=== PATIENT | male | born 1940 | race Caucasian/White ===

== ENCOUNTER 2016-11-20 07:00 | Emergency (ER) | payer OTHER ==
[~2016-11-20 07:00] MED LIST: ALOE; ASPIR 8181 MG PO; CELEXA20 MG; CLINDAMYCIN300 M1 PO; CLOPIDOGREL75 M1 PO; COZ50 PO; HCTZ/TRIAMTEREN1 CA1 PO; HYDRALAZINE HY100 MG PO; KLOR-CON M1010 MEQ; LAC PO; LEVOXYL0.1 MG PO; LIPI10 PO; LOSARTAN POTASS25 M1 PO; LYSINE; METOPROLOL SUCC25 M1 PO; MULTI-VITAMINS1 TAB PO; OCUVITE1 TA2 PO; PROTONIX40 MG PO
[2016-11-20 10:00] VITALS: BP 148/72
== END 2016-11-20 10:00 | disposition home or self-care (01) ==
LOC: ED 07:00
DX: S01.01XA Laceration without foreign body of scalp, initial encounter (principal); S63.502A Unspecified sprain of left wrist, initial encounter; S39.012A Strain of muscle, fascia and tendon of lower back, initial encounter; S41.112A Laceration without foreign body of left upper arm, initial encounter; S41.111A Laceration without foreign body of right upper arm, initial encounter; I10 Essential (primary) hypertension; E07.9 Disorder of thyroid, unspecified; Z86.73 Personal history of transient ischemic attack (TIA), and cerebral infarction without residual deficits; W18.00XA Striking against unspecified object with subsequent fall, initial encounter; Y93.89 Activity, other specified; Y99.8 Other external cause status; Y92.008 Other place in unspecified non-institutional (private) residence as the place of occurrence of the external cause

== ENCOUNTER 2017-02-23 12:28 | Inpatient (IN) | payer OTHER ==
[~2017-02-23] VITALS: Ht 172.7 cm; Wt 87.1 kg
[2017-02-23 13:24] LABS: CALCIUM 9.1 mg/dL (8.5-10.1); CARBON DIOXIDE 27.5 mmol/L (21-32); CHLORIDE SERUM 104 mmol/L (98-107); GLUCOSE SERUM 115 mg/dL (74-106); POTASSIUM SERUM 4.8 mmol/L (3.5-5.1); SODIUM SERUM 137 mmol/L (136-145)
[2017-02-23 13:28] LABS: BASOPHIL % 0.2 % (0-2); PLATELET COUNT 163 x10^3mcL (130-400); RED CELL DISTRIBUTION WIDTH 12.3 % (11.5-14.5)
[2017-02-23 13:29] LABS: ALBUMIN 3.7 g/dL (3.4-5.0); ALKALINE PHOSPHATASE 65 U/L (46-116); ALT/SGPT 19 U/L (16-63); AST/SGOT 25 U/L (15-37); BILIRUBIN TOTAL 0.62 mg/dL (0.20-1.00); LIPASE 945 IU/L (73-393)
[2017-02-23] MEDS ORDERED: LIPI10 PO (14:42)
[2017-02-23] MEDS ORDERED: PROTONIX40 MG PO (14:43)
[2017-02-23] MEDS ORDERED: LEVOXYL150 MCG PO (14:43)
[2017-02-23] MEDS ORDERED: HYDROCHLOROTHIA25 MG PO (14:43)
[2017-02-23] MEDS ORDERED: PLA75 PO (14:43)
[2017-02-23] MEDS ORDERED: ASPIR 8181 MG PO (14:44)
[2017-02-23] MEDS ORDERED: CITALOPRAM HYDR40 M1 PO (14:44)
[2017-02-23] MEDS ORDERED: ALDACTONE25 MG PO (14:44)
[2017-02-23] MEDS ORDERED: K10 PO (14:44)
[2017-02-23] MEDS ORDERED: HYDRALAZINE HCL50 MG PO (14:44)
[2017-02-23] MEDS ORDERED: OCUVITE ADULT 51 SGL PO (14:45)
[2017-02-23] MEDS ORDERED: CENTRUM SILVER1 EACH PO (14:45)
[2017-02-23] MEDS ORDERED: L-LYSINE500 M1 PO (14:45)
[2017-02-23] MEDS ORDERED: VITAMIN D22000 I1 PO (14:45)
[2017-02-23 15:41] LABS: FREE T4 1.23 ng/dL (0.76-1.46); FREE THYROXINE INDEX 3.5 ug/dL (1.4-4.5); T3 TOTAL 0.8 ng/mL; T4(THYROXINE) 10.1 ug/dL (4.7-13.3)
[2017-02-23 15:47] VITALS: BP 156/74
[2017-02-23 15:55] LABS: MAGNESIUM 2.1 mg/dL (1.8-2.4); PHOSPHOROUS 3.6 mg/dL (2.5-4.9)
[2017-02-23 16:01] LABS: CHOLESTEROL/HDL RATIO 2.8
[2017-02-23 16:14] LABS: microscopic required? NO
[2017-02-23 16:21] LABS: UA SPECIFIC GRAVITY 1.025 (1.005-1.035); urine erythrocyte NEGATIVE (NEGATIVE)
[2017-02-23 16:31] LABS: AMPHETAMINE QUAL UR NONE DETECTED (NEG <=1000)
[2017-02-24 05:44] VITALS: BP 167/88
[2017-02-24 06:28] LABS: BASOPHIL % 0.3 % (0-2); PLATELET COUNT 150 x10^3mcL (130-400); RED CELL DISTRIBUTION WIDTH 12.4 % (11.5-14.5)
[2017-02-24 06:41] LABS: CALCIUM 8.2 mg/dL (8.5-10.1); CHLORIDE SERUM 105 mmol/L (98-107); CREATININE SERUM 1.4 mg/dL (0.7-1.3); GLUCOSE SERUM 98 mg/dL (74-106); POTASSIUM SERUM 4.3 mmol/L (3.5-5.1); SODIUM SERUM 137 mmol/L (136-145)
[2017-02-24 09:16] VITALS: BP 159/71
[2017-02-24 13:56] VITALS: BP 101/62
[2017-02-24 16:43] VITALS: BP 123/63
[2017-02-24 20:52] VITALS: BP 136/69
[2017-02-25 05:37] VITALS: BP 141/72
[2017-02-25 06:32] LABS: BASOPHIL % 0.8 % (0-2); PLATELET COUNT 150 x10^3mcL (130-400); RED CELL DISTRIBUTION WIDTH 12.5 % (11.5-14.5)
[2017-02-25 06:50] LABS: CALCIUM 8.5 mg/dL (8.5-10.1); CARBON DIOXIDE 23.3 mmol/L (21-32); CHLORIDE SERUM 107 mmol/L (98-107); CREATININE SERUM 1.3 mg/dL (0.7-1.3); GLUCOSE SERUM 104 mg/dL (74-106); POTASSIUM SERUM 3.9 mmol/L (3.5-5.1); SODIUM SERUM 137 mmol/L (136-145)
[2017-02-25 10:13] VITALS: BP 138/72
[2017-02-25 13:21] VITALS: BP 113/60
[2017-02-25] MEDS ORDERED: NOR5 PO (13:28)
[2017-02-25] MEDS ORDERED: NORCO 10-325 T1 EACH PO (13:31)
[2017-02-25] MEDS ORDERED: BD LACTINEX1.4 MG PO (13:33)
[2017-02-25] MEDS ORDERED: LEVAQUIN750 MG PO (13:33)
[2017-02-25 14:12] VITALS: BP 113/60
== END 2017-02-25 14:45 | disposition home or self-care (01) | DRG 444 ==
LOC: ED 12:28 → DU 15:00
PROVIDERS: Emergency Medicine; Family Medicine; ADMIT Family Medicine
DX: K80.20 Calculus of gallbladder without cholecystitis without obstruction (principal); N17.0 Acute kidney failure with tubular necrosis; E03.9 Hypothyroidism, unspecified; H54.1131 Blindness right eye category 3, low vision left eye category 1; F32.9 Major depressive disorder, single episode, unspecified; E86.0 Dehydration; S46.001A Unspecified injury of muscle(s) and tendon(s) of the rotator cuff of right shoulder, initial encounter; I71.4 Abdominal aortic aneurysm, without rupture; M51.34 Other intervertebral disc degeneration, thoracic region; K57.30 Diverticulosis of large intestine without perforation or abscess without bleeding; N40.0 Benign prostatic hyperplasia without lower urinary tract symptoms; E78.5 Hyperlipidemia, unspecified; I25.2 Old myocardial infarction; Z87.891 Personal history of nicotine dependence; Z86.73 Personal history of transient ischemic attack (TIA), and cerebral infarction without residual deficits; I25.10 Atherosclerotic heart disease of native coronary artery without angina pectoris; X58.XXXA Exposure to other specified factors, initial encounter; Y93.89 Activity, other specified; Y92.89 Other specified places as the place of occurrence of the external cause
CPT/HCPCS: 83880; 84439; J1170; J1885; J1956; J3490; J7030; J7040; Q0092

== ENCOUNTER 2018-10-10 17:46 | Inpatient (IN) | payer OTHER ==
[~2018-10-10] VITALS: Ht 172.7 cm; Wt 92.5 kg
[~2018-10-10 17:46] MED LIST changes: +ALDACTONE25 MG PO; +BD LACTINEX1.4 MG PO; +CENTRUM SILVER1 EACH PO; +CITALOPRAM HYDR40 M1 PO; +HYDRALAZINE HCL50 MG PO; +HYDROCHLOROTHIA25 MG PO; +K10 PO; +L-LYSINE500 M1 PO; +LEVAQUIN750 MG PO; +LEVOXYL150 MCG PO; +NOR5 PO; +NORCO 10-325 T1 EACH PO; +OCUVITE ADULT 51 SGL PO; +PLA75 PO; +VITAMIN D22000 I1 PO
[2018-10-10 18:47] LABS: BASOPHIL % 0.4 % (0-2); PLATELET COUNT 186 x10^3mcL (130-400); RED CELL DISTRIBUTION WIDTH 13.7 % (11.5-14.5)
[2018-10-10 18:50] LABS: CALCIUM 9.6 mg/dL (8.5-10.1); CARBON DIOXIDE 28.3 mmol/L (21-32); CHLORIDE SERUM 106 mmol/L (98-107); CREATININE SERUM 1.8 mg/dL (0.7-1.3); GLUCOSE SERUM 108 mg/dL (74-106); POTASSIUM SERUM 4.6 mmol/L (3.5-5.1); SODIUM SERUM 142 mmol/L (136-145)
[2018-10-10 18:54] LABS: ALBUMIN 3.5 g/dL (3.4-5.0); ALKALINE PHOSPHATASE 84 U/L (46-116); ALT/SGPT 41 U/L (16-63); AST/SGOT 26 U/L (15-37); BILIRUBIN TOTAL 0.4 mg/dL (0.20-1.00); TOTAL PROTEIN, SERUM 7.4 g/dL (6.4-8.2)
[2018-10-10 22:47] VITALS: BP 129/69
[2018-10-10 22:55] VITALS: Ht 172.7 cm; Wt 92.5 kg
[2018-10-10 23:49] VITALS: BP 129/69
[2018-10-11 05:46] VITALS: BP 143/65
[2018-10-11 09:48] VITALS: BP 123/65
[2018-10-11 12:48] VITALS: BP 130/67
[2018-10-11 14:52] LABS: microscopic required? NO
[2018-10-11 14:59] LABS: urine erythrocyte NEGATIVE (NEGATIVE)
[2018-10-11 17:17] VITALS: BP 130/72
[2018-10-11 21:50] VITALS: BP 149/68
[2018-10-12 06:28] VITALS: BP 129/50
[2018-10-12 06:54] LABS: BASOPHIL % 0.1 % (0-2); PLATELET COUNT 191 x10^3mcL (130-400)
[2018-10-12 07:29] LABS: CALCIUM 9.1 mg/dL (8.5-10.1); CARBON DIOXIDE 23.2 mmol/L (21-32); CHLORIDE SERUM 107 mmol/L (98-107); CREATININE SERUM 1.3 mg/dL (0.7-1.3); GLUCOSE SERUM 121 mg/dL (74-106); POTASSIUM SERUM 4.6 mmol/L (3.5-5.1); SODIUM SERUM 141 mmol/L (136-145)
[2018-10-12 08:20] VITALS: BP 150/74
[2018-10-12] MEDS ORDERED: LEVOFLOXACIN500 M1 PO (10:46)
[2018-10-12] MEDS ORDERED: MEDDP PO (10:47)
[2018-10-12] MEDS ORDERED: LAC PO (10:47)
[2018-10-12] MEDS ORDERED: PROAIR HFA8.5 GM IH (12:03)
[2018-10-12 13:28] VITALS: BP 142/71
[2018-10-12 13:37] VITALS: BP 128/60
== END 2018-10-12 14:10 | disposition home or self-care (01) | DRG 205 ==
LOC: ED 17:46 → DU 21:47
PROVIDERS: Emergency Medicine; ADMIT Family Medicine
DX: M94.0 Chondrocostal junction syndrome [Tietze] (principal); N17.0 Acute kidney failure with tubular necrosis; E87.4 Mixed disorder of acid-base balance; J44.1 Chronic obstructive pulmonary disease with (acute) exacerbation; J20.9 Acute bronchitis, unspecified; I11.9 Hypertensive heart disease without heart failure; I25.10 Atherosclerotic heart disease of native coronary artery without angina pectoris; I25.82 Chronic total occlusion of coronary artery; H54.1131 Blindness right eye category 3, low vision left eye category 1; E03.9 Hypothyroidism, unspecified; I25.2 Old myocardial infarction; F32.9 Major depressive disorder, single episode, unspecified; Z68.31 Body mass index [BMI] 31.0-31.9, adult; Z95.5 Presence of coronary angioplasty implant and graft; Z86.718 Personal history of other venous thrombosis and embolism; Z86.73 Personal history of transient ischemic attack (TIA), and cerebral infarction without residual deficits; Z87.891 Personal history of nicotine dependence; Z79.82 Long term (current) use of aspirin
CPT/HCPCS: 83880; 94150; J0456; J0696; J1956; J2405; J2920; J3010; J7030; J7050; J7620; Q0092; Q9967

== ENCOUNTER → 2019-06-09 12:30 | Emergency (ER) | payer OTHER ==
[~2019-06-09 12:30] MED LIST changes: +LEVOFLOXACIN500 M1 PO; +MEDDP PO; +PROAIR HFA8.5 GM IH
== END | disposition left against medical advice (07) ==
LOC: ED 12:30
DX: Z53.21 Procedure and treatment not carried out due to patient leaving prior to being seen by health care provider (principal)